=== PATIENT | male | born 1965 | race Caucasian/White ===

== ENCOUNTER 2017-04-27 11:30 | Emergency (ER) | payer MEDICAID ==
[~2017-04-27] VITALS: Ht 180.3 cm; Wt 83.0 kg
[2017-04-27] MEDS ORDERED: HYDR-4209 PO (11:50)
[2017-04-27] MEDS ORDERED: GABA800T2 PO (11:50)
[2017-04-27] MEDS ORDERED: METH750T3 PO (11:50)
--- NOTE | 2017-04-27 11:55 | NUR ---
MSE DONE BY GELACIO AT BEDSIDE.
--- NOTE | 2017-04-27 12:06 | NUR ---
Patient discharged to home in stable conditon. Written and verbal after care instructions given. Patient verbalizes understanding of instructions.
== END 2017-04-27 12:08 | disposition home or self-care (01) ==
LOC: ER 11:39
DX: F20.9 Schizophrenia, unspecified (principal); Z95.0 Presence of cardiac pacemaker; F10.10 Alcohol abuse, uncomplicated; F17.200 Nicotine dependence, unspecified, uncomplicated; M19.90 Unspecified osteoarthritis, unspecified site
CPT/HCPCS: 99283; A4663

== ENCOUNTER 2017-04-29 09:38 | Emergency (ER) | payer MEDICAID ==
[~2017-04-29] VITALS: Ht 188 cm; Wt 108.9 kg
[~2017-04-29 09:38] MED LIST: GABA800T2 PO; HYDR-4209 PO; METH750T3 PO
[2017-04-29] MEDS ORDERED: HYDROCODONE/APAP 5-325MG TABLET PO ONE (10:30)
--- NOTE | 2017-04-29 10:37 | NUR ---
MSE COMPLETED, ACI/RX X1 GIVEN. PT AMBULATED W/O DIFF/TOOK ALL BELONGINGS.
[2017-04-29 10:38] VITALS: BP 128/82
[2017-04-29] MEDS ORDERED: HYDROCODONE/APAP 5-325MG TABLET ONE (10:45)
== END 2017-04-29 10:39 | disposition home or self-care (01) ==
LOC: ER 09:38
DX: M54.5 Low back pain (principal); G89.29 Other chronic pain; M19.90 Unspecified osteoarthritis, unspecified site; F20.9 Schizophrenia, unspecified; F31.9 Bipolar disorder, unspecified; F10.20 Alcohol dependence, uncomplicated; F17.200 Nicotine dependence, unspecified, uncomplicated; Z59.0 Homelessness
CPT/HCPCS: A4663

== ENCOUNTER 2018-11-01 13:21 | Emergency (ER) | payer MEDICAID ==
[~2018-11-01] VITALS: Ht 177.8 cm; Wt 81.6 kg
[~2018-11-01 13:21] MED LIST changes: +GABA800T11 PO; -GABA800T2 PO
--- NOTE | 2018-11-01 13:37 | NUR ---
52 YEARS OLD MALE WALKING TO ER REQUEST REFILL FOR ZYPREXA DENIES ANXIETY, NO PAIN.
[2018-11-01 14:02] VITALS: BP 130/70
--- NOTE | 2018-11-01 14:03 | NUR ---
PATIENT CONDITION STABLE D/C HOME WITH INSTRUCTIONS AFTER CARE REVIEWED UNDERSTOOD LEFT ER ALERT, ORIENTED X4 AMBULATORY WITH STEADY GAIT.
== END 2018-11-01 14:04 | disposition home or self-care (01) ==
LOC: ER 13:21
DX: F20.9 Schizophrenia, unspecified (principal); M25.50 Pain in unspecified joint; F31.9 Bipolar disorder, unspecified; F17.200 Nicotine dependence, unspecified, uncomplicated; Z59.0 Homelessness
CPT/HCPCS: A4663

== ENCOUNTER 2023-07-07 16:33 | Emergency (ER) | payer MEDICAID ==
[~2023-07-07] VITALS: Ht 177.8 cm; Wt 81.6 kg
[~2023-07-07 16:33] MED LIST changes: +METH-807 PO; -METH750T3 PO
[2023-07-07 16:45] VITALS: O2SAT 97
[2023-07-07] MEDS ORDERED: HYDR-3972 PO (17:08)
[2023-07-07] MEDS ORDERED: KETOROLAC TROMETHAMINE 30 MG INJ ONE (17:08)
[2023-07-07] MEDS ORDERED: KETOROLAC TROMETHAMINE 30 MG INJ IM ONE (17:15)
== END 2023-07-07 17:27 | disposition home or self-care (01) ==
LOC: ER 16:33
DX: M79.672 Pain in left foot (principal); L08.9 Local infection of the skin and subcutaneous tissue, unspecified; F17.210 Nicotine dependence, cigarettes, uncomplicated; Z59.00 Homelessness unspecified; Z79.899 Other long term (current) drug therapy
CPT/HCPCS: 99283; 96372; J1885; A4663